=== PATIENT | female | born 1990 | race Caucasian/White ===

== ENCOUNTER → 2023-08-25 | Outpatient (CLI) | payer OTHER | LOC: M WHC 08:43 → MERGE 09:30 | PROVIDERS: ATTEND Obstetrics & Gynecology | DX: O44.02 Complete placenta previa NOS or without hemorrhage, second trimester (principal); Z3A.23 23 weeks gestation of pregnancy ==

== ENCOUNTER → 2023-09-06 | Outpatient (CLI) | payer OTHER ==
[2023-09-06 14:37] LABS: HEMATOCRIT 32.1 % (36.0-47.0); HEMOGLOBIN 10.2 g/dl (12.0-15.5); MEAN CORPUSCULAR HEMOGLOBIN 29.7 pg (27.0-33.0); MEAN CORPUSCULAR HGB CONC 31.8 g/dl (32.0-36.5); MEAN CORPUSCULAR VOLUME 93.3 fl (80.0-96.0); PLATELET COUNT, AUTOMATED 273 10^3/uL (150-450); RED BLOOD COUNT 3.44 10^6/uL (4.00-5.40); WHITE BLOOD COUNT 8.4 10^3/uL (4.0-10.0)
[2023-09-06 15:20] LABS: TOTAL 25(OH) VITAMIN D 23.4 NG/ML (20.0-100.0)
== END ==
LOC: M PLALAB 10:32
PROVIDERS: ATTEND Obstetrics & Gynecology
DX: O26.892 Other specified pregnancy related conditions, second trimester (principal); Z3A.00 Weeks of gestation of pregnancy not specified

== ENCOUNTER → 2023-09-28 | Outpatient (REF) | payer OTHER | LOC: M SFHCWAGY 12:53 | PROVIDERS: ATTEND Obstetrics & Gynecology | DX: R30.0 Dysuria (principal) ==

== ENCOUNTER → 2023-10-14 | Outpatient (REF) | payer OTHER | LOC: M SFHCWAGY 17:14 | PROVIDERS: ATTEND Obstetrics & Gynecology | DX: O34.211 Maternal care for low transverse scar from previous cesarean delivery (principal) ==

== ENCOUNTER → 2023-11-01 | Outpatient (CLI) | payer OTHER | LOC: M WHC 09:17 | PROVIDERS: ATTEND Obstetrics & Gynecology | DX: O99.843 Bariatric surgery status complicating pregnancy, third trimester (principal) ==

== ENCOUNTER → 2023-11-12 | Outpatient (CLI) | payer OTHER ==
[2023-11-12 16:02] LABS: HEMATOCRIT 29.9 % (36.0-47.0); HEMOGLOBIN 9.4 g/dl (12.0-15.5); MEAN CORPUSCULAR HEMOGLOBIN 29.3 pg (27.0-33.0); MEAN CORPUSCULAR HGB CONC 31.4 g/dl (32.0-36.5); MEAN CORPUSCULAR VOLUME 93.1 fl (80.0-96.0); PLATELET COUNT, AUTOMATED 242 10^3/uL (150-450); RED BLOOD COUNT 3.21 10^6/uL (4.00-5.40); WHITE BLOOD COUNT 9.8 10^3/uL (4.0-10.0)
[2023-11-12 16:29] LABS: TOTAL PROTEIN,RANDOM URINE 20.2 MG/DL (0.0-14.0); URIC ACID 3.7 MG/DL (3.1-7.8)
[2023-11-12 16:31] LABS: LDH LACTATE DEHYDROGENASE 174 U/L (120-246)
[2023-11-12 16:32] LABS: ALT/SGPT 12 U/L (7.0-40); AST/SGOT 10 U/L (<34); BILIRUBIN,TOTAL 0.6 MG/DL (0.3-1.2); CREATININE FOR GFR 0.46 MG/DL (0.55-1.30); GLOMERULAR FILTRATION RATE > 60.0 (>60)
[2023-11-12 16:33] LABS: CREATININE,RANDOM URINE 96.7 MG/DL
== END ==
LOC: M PLALAB 12:15
PROVIDERS: ATTEND Obstetrics & Gynecology
DX: R51.9 Headache, unspecified (principal)

== ENCOUNTER → 2023-11-23 | Outpatient (REF) | payer OTHER ==
[~2023-11-23] MED LIST: ACET325C5 PO; OMEP40CA4 PO; PRENTAB9 PO; REGL5TAB2 PO
== END ==
LOC: M SFHCWAGY 17:14
PROVIDERS: ATTEND Obstetrics & Gynecology
DX: Z36.85 Encounter for antenatal screening for Streptococcus B (principal)

== ENCOUNTER 2023-11-24 08:16 | Outpatient (CLI) | payer OTHER ==
[~2023-11-24] VITALS: Ht 172.7 cm; Wt 121.4 kg
[2023-11-24] MEDS ORDERED: OMEP40CA4 PO (08:34)
[2023-11-24] MEDS ORDERED: PRENTAB9 PO (08:34)
[2023-11-24] MEDS ORDERED: REGL5TAB2 PO (08:34)
[2023-11-24] MEDS ORDERED: ACET325C5 PO (08:34)
[2023-11-24 08:39] VITALS: BP 133/64
[2023-11-24] MEDS: BETAMETHASONE SOLUSPAN 6MG/ML 5ML VIAL IM SCH (09:08)
[2023-11-24 09:11] VITALS: BP 130/60
[2023-11-25] MEDS ORDERED: UNRESOLVED CLARIFICATION ENTRY XX SCH (00:01)
== END 2023-11-24 09:17 | disposition home or self-care (01) ==
LOC: M LDO 08:16
PROVIDERS: ATTEND Advanced Practice Midwife
DX: O09.813 Supervision of pregnancy resulting from assisted reproductive technology, third trimester (principal); O34.211 Maternal care for low transverse scar from previous cesarean delivery; O09.523 Supervision of elderly multigravida, third trimester; O99.613 Diseases of the digestive system complicating pregnancy, third trimester; O26.893 Other specified pregnancy related conditions, third trimester; K21.9 Gastro-esophageal reflux disease without esophagitis; R51.9 Headache, unspecified; Z3A.36 36 weeks gestation of pregnancy
CPT/HCPCS: 59025; 96372; G0463; J0702

== ENCOUNTER 2023-11-25 08:00 | Outpatient (CLI) | payer OTHER ==
[~2023-11-25] VITALS: Ht 172.7 cm; Wt 122.2 kg
[2023-11-25 08:13] VITALS: BP 137/66
[2023-11-25] MEDS ORDERED: HOME MED LIST COMPLETE! XX SCH (08:20)
[2023-11-25] MEDS: BETAMETHASONE SOLUSPAN 6MG/ML 5ML VIAL IM ONE (09:03)
[2023-11-25 09:38] VITALS: BP 127/58
[2023-12-01] MEDS ORDERED: BUSP1TAB PO (07:43)
[2023-12-01] MEDS ORDERED: HYDR-643 PO (07:43)
== END 2023-11-25 09:38 | disposition home or self-care (01) ==
LOC: M LDO 08:00
PROVIDERS: ATTEND Obstetrics & Gynecology
DX: O09.813 Supervision of pregnancy resulting from assisted reproductive technology, third trimester (principal); O34.211 Maternal care for low transverse scar from previous cesarean delivery; O09.523 Supervision of elderly multigravida, third trimester; O99.613 Diseases of the digestive system complicating pregnancy, third trimester; K21.9 Gastro-esophageal reflux disease without esophagitis; O26.893 Other specified pregnancy related conditions, third trimester; R51.9 Headache, unspecified; O99.343 Other mental disorders complicating pregnancy, third trimester; F41.9 Anxiety disorder, unspecified; O99.843 Bariatric surgery status complicating pregnancy, third trimester; Z88.2 Allergy status to sulfonamides; Z3A.36 36 weeks gestation of pregnancy
CPT/HCPCS: 59025; 96372; G0463; J0702

== ENCOUNTER 2023-12-02 05:04 | Inpatient (IN) | payer OTHER ==
[~2023-12-02] VITALS: Ht 172.7 cm; Wt 118.5 kg
[2023-12-02] VITALS (8 sets, daily range): BP systolic 105–125; BP diastolic 55–73; TEMP 97.4; O2SAT 96–98
[~2023-12-02 05:04] MED LIST changes: +BUSP1TAB PO; +HYDR-643 PO
[2023-12-02] MEDS ORDERED: ceFAZolin SOD 3 GM IV Place Holder IV ONE (05:15)
[2023-12-02] MEDS: LACTATED RINGER'S 1000 ML IV STA (06:07)
[2023-12-02 06:25] LABS: HEMATOCRIT 30.6 % (36.0-47.0); HEMOGLOBIN 9.6 g/dl (12.0-15.5); MEAN CORPUSCULAR HEMOGLOBIN 28.7 pg (27.0-33.0); MEAN CORPUSCULAR HGB CONC 31.4 g/dl (32.0-36.5); MEAN CORPUSCULAR VOLUME 91.3 fl (80.0-96.0); PLATELET COUNT, AUTOMATED 308 10^3/uL (150-450); RED BLOOD COUNT 3.35 10^6/uL (4.00-5.40); WHITE BLOOD COUNT 10.6 10^3/uL (4.0-10.0)
[2023-12-02] MEDS: ceFAZolin SOD 2 GM in IV 1 EA IV ONE (07:35)
[2023-12-02] MEDS: ceFAZolin SOD 1 GM in D5W MINI-BAG PLUS 50 ML IV ONE (07:35)
[2023-12-02] MEDS: BICITRA 30ML SOLN UDC PO ONE (07:35)
[2023-12-02] MEDS: LR 1,000 ML IV SCH (07:36)
[2023-12-02] MEDS ORDERED: MORPHINE PRES-FREE INJ 10 MG/10 ML VIAL As Ordered ONE (08:26)
[2023-12-02] MEDS ORDERED: GLYCOPYRROLATE INJ 0.2 MG/ML 2 ML VIAL As Ordered ONE (08:26)
[2023-12-02] MEDS ORDERED: KETOROLAC 60MG 2ML VIAL As Ordered ONE (08:26)
[2023-12-02] MEDS ORDERED: PHENYLephrine 500MCG 5ML (100MCG/ML) SYRINGE As Ordered ONE (08:26)
[2023-12-02] MEDS ORDERED: ONDANSETRON 4MG 2ML VIAL As Ordered ONE (08:26)
[2023-12-02] MEDS ORDERED: METOCLOPRAMIDE INJ 10MG/2ML VIAL As Ordered ONE (08:26)
[2023-12-02] MEDS ORDERED: ACETAMINOPHEN 1000MG 100ML IV BAG As Ordered ONE (08:26)
[2023-12-02] MEDS ORDERED: ePHEDrine SULFATE 25 MG/5 ML(5MG/ML) SYRINGE As Ordered ONE (08:26)
[2023-12-02] MEDS ORDERED: OXYTOCIN 30UNITS IN 0.9% NaCl 500ML IV BAG As Ordered ONE (08:26)
[2023-12-02] MEDS ORDERED: MORPHINE 4 MG/ML 1ML VIAL IV PRN (09:10)
[2023-12-02] MEDS ORDERED: ANUSOL HC CREAM 30GM TOP PRN (09:10)
[2023-12-02] MEDS ORDERED: RHOGAM 300MCG (1500IU) INJ IM SCH (09:10)
[2023-12-02] MEDS ORDERED: ONDANSETRON 4MG 2ML VIAL IV PRN ×2 (09:10→09:30)
[2023-12-02] MEDS ORDERED: SIMETHICONE 80MG CHEW TAB PO PRN (09:10)
[2023-12-02] MEDS ORDERED: PERCOCET PO (09:17)
[2023-12-02] MEDS ORDERED: COLA100C5 PO (09:17)
[2023-12-02] MEDS ORDERED: METOCLOPRAMIDE INJ 10MG/2ML VIAL IV PRN (09:30)
[2023-12-02] MEDS ORDERED: MORPHINE 2 MG/ML 1ML VIAL IV PRN (09:30)
[2023-12-02] MEDS ORDERED: diphenhydrAMINE 50MG/ML VIAL IV PRN (09:30)
[2023-12-02] MEDS ORDERED: **NOTE PATIENT COMMENT** MISC XX SCH (09:30)
[2023-12-02] MEDS ORDERED: NALOXONE INJ 0.4MG/1ML VIAL IV PRN ×2 (09:30)
[2023-12-02] MEDS ORDERED: fentaNYL 100 MCG/2 ML INJECTION As Ordered ONE (09:36)
[2023-12-02] MEDS: fentaNYL 100 MCG/2 ML INJECTION IV PRN (09:40)
[2023-12-02] MEDS: SLF 3 ML SYR IV SCH (09:42)
[2023-12-02] MEDS: OXYTOCIN DRIP 30 UNITS in IV 1 EA IV SCH (09:43)
[2023-12-02] MEDS ORDERED: KETOROLAC 30 MG/ML 1ML VIAL As Ordered ONE (09:58)
[2023-12-02] MEDS: KETOROLAC 30 MG/ML 1ML VIAL IV SCH (10:05)
[2023-12-02] MEDS ORDERED: oxyCODONE 5MG TAB As Ordered ONE (10:07)
[2023-12-02] MEDS: oxyCODONE 5MG TAB PO PRN (10:08)
[2023-12-02] MEDS: PRENATAL VITAMINS CHEWABLE TABLET PO SCH (14:18)
[2023-12-02] MEDS: ACETAMINOPHEN 500 MG TAB PO PRN (14:19)
[2023-12-02] MEDS ORDERED: PILL CUTTER 1 EACH XX PRN (14:45)
[2023-12-02] MEDS: OMEPRAZOLE 20MG CAP PO SCH (16:25)
[2023-12-02] MEDS: METOCLOPRAMIDE 5 MG TAB PO SCH (18:59)
[2023-12-02] MEDS: busPIRone 5 MG TAB PO SCH (21:37)
[2023-12-02] MEDS: DOCUSATE SODIUM 100MG CAPSULE PO SCH (21:37)
[2023-12-03 06:00] VITALS: BP 126/65
[2023-12-03 07:34] LABS: HEMATOCRIT 24.8 % (36.0-47.0); HEMOGLOBIN 8.1 g/dl (12.0-15.5); MEAN CORPUSCULAR HEMOGLOBIN 29.3 pg (27.0-33.0); MEAN CORPUSCULAR HGB CONC 32.7 g/dl (32.0-36.5); MEAN CORPUSCULAR VOLUME 89.9 fl (80.0-96.0); PLATELET COUNT, AUTOMATED 254 10^3/uL (150-450); RED BLOOD COUNT 2.76 10^6/uL (4.00-5.40); WHITE BLOOD COUNT 11.1 10^3/uL (4.0-10.0)
[2023-12-03] MEDS: PERCOCET 5MG/325MG TAB PO PRN (09:24)
[2023-12-03 18:00] VITALS: BP 140/65; O2SAT 95
[2023-12-04] MEDS: PERCOCET 5MG/325MG TAB PO PRN (04:28)
[2023-12-04 06:00] VITALS: BP 132/57; O2SAT 97
[2023-12-04] MEDS: MEASLES,MUMPS,RUBELLA VACCINE INJ (MMR-II) SC.IMMUN ONE (07:30)
== END 2023-12-04 14:50 | disposition home or self-care (01) | DRG 773 ==
LOC: M LDI 05:04 → M OBS 11:15
PROVIDERS: ADMIT Obstetrics & Gynecology; ATTEND Obstetrics & Gynecology
PROC: 10D00Z1 Extraction of Products of Conception, Low, Open Approach (ICD-10-PCS; principal; 2023-12-02)
DX: O34.211 Maternal care for low transverse scar from previous cesarean delivery (principal); Z3A.37 37 weeks gestation of pregnancy; Z37.0 Single live birth

== ENCOUNTER → 2024-09-13 | Outpatient (REF) | payer OTHER ==
[~2024-09-13] MED LIST changes: +COLA100C5 PO; +PERCOCET PO
[2024-09-15 16:42] LABS: HPV APTIMA Not Detected (Not Detected)
== END ==
LOC: M SFHCWAGY 17:24
PROVIDERS: ATTEND Obstetrics & Gynecology
DX: Z12.4 Encounter for screening for malignant neoplasm of cervix (principal)